=== PATIENT | male | born 1965 | race Caucasian/White ===

== ENCOUNTER 2018-11-26 12:27 | Emergency (ER) | payer MEDICAID ==
[~2018-11-26] VITALS: Ht 165.1 cm; Wt 67.0 kg
[2018-11-26] MEDS ORDERED: ACETAMINOPHEN WITH CODEINE 300/30MG TABLET PO STA (14:37)
[2018-11-26 16:59] VITALS: BP 122/71
== END 2018-11-26 17:04 | disposition home or self-care (01) ==
LOC: ER 12:27
DX: M79.605 Pain in left leg (principal); M79.604 Pain in right leg; Z86.73 Personal history of transient ischemic attack (TIA), and cerebral infarction without residual deficits
CPT/HCPCS: 71045; 93970; 99284